=== PATIENT | male | born 1985 | race Caucasian/White ===

== ENCOUNTER 2023-03-18 04:33 | Emergency (ER) | payer SELFPAY ==
[2023-03-18 04:41] VITALS: TEMP 98.7; BMI 23.6
[2023-03-18] MEDS ORDERED: ACETAMINOPHEN 1000 MG/100 ML BAG IVPB ONE (05:46)
[2023-03-18] MEDS ORDERED: ACETAMINOPHEN INJECTION 100 ML IVPB ONE (05:53)
[2023-03-18 06:51] LABS: POTASSIUM 4.3 mmol/L (3.5-5.1)
[2023-03-18 06:53] LABS: CALCIUM 9.5 mg/dL (8.5-10.1)
[2023-03-18 06:54] LABS: ALBUMIN 3.6 g/dl (3.4-5.0); BASO % 0.7 % (0-2.0); BLOOD UREA NITROGEN 14.7 mg/dL (7-18); EOS % 1.8 % (0-4.5); HEMATOCRIT 41.6 % (35.4-49); HEMOGLOBIN 13.7 GM/dL (11.7-16.9); LYMPH % 19.3 % (8-40); MCH 29.3 pg (25.7-33.7); MCHC 32.9 g/dl (32.0-35.9); MEAN CELL VOLUME 89.1 fl (80-96); MEAN PLT VOLUME 7.2 fl (7.5-11.1); MONO % 6.1 % (3.8-10.2); NEUT % 72.1 % (42.8-82.8); PLATELET COUNT 353 10^3/uL (134-434); RBC 4.67 M/mm3 (4.00-5.60); WHITE BLOOD COUNT 11.1 K/mm3 (4.0-10.0)
[2023-03-18 06:57] LABS: CREATININE 1.2 mg/dL (0.55-1.3)
[2023-03-18 06:59] LABS: BILIRUBIN,TOTAL 0.4 mg/dL (0.2-1); TOT PROT 6.8 g/dl (6.4-8.2)
[2023-03-18 09:16] VITALS: BP 116/75; PULSE 79; RESP 17
== END 2023-03-18 11:14 | disposition home or self-care (01) ==
LOC: JER 04:33
PROC: 3E033NZ Introduction of Analgesics, Hypnotics, Sedatives into Peripheral Vein, Percutaneous Approach (ICD-10-PCS; principal; 2023-03-18)
DX: R07.9 Chest pain, unspecified (principal); F41.9 Anxiety disorder, unspecified; R07.0 Pain in throat; R51.9 Headache, unspecified; R53.81 Other malaise; Z20.822 Contact with and (suspected) exposure to COVID-19
CPT/HCPCS: 0241U-QW; 36415; 71045-TC-FY; 80053; 84484; 85025; 93005; 93010; 99285-25